=== PATIENT | female | born 1965 | race Caucasian/White ===

== ENCOUNTER 2016-11-23 11:32 | Emergency (ER) | payer SELFPAY ==
[~2016-11-23] VITALS: Ht 162.6 cm; Wt 81.0 kg
[2016-11-23] MEDS ORDERED: KETOROLAC 60MG/2ML VIAL IM ONE (12:00)
[2016-11-23] MEDS ORDERED: LORAZEPAM 1MG TABLET PO ONE (12:00)
[2016-11-23] MEDS ORDERED: CYCLOBENZAPRINE 10MG TABLET PO ONE (12:00)
[2016-11-23 12:01] VITALS: BP 152/87
== END 2016-11-23 13:18 | disposition home or self-care (01) ==
LOC: ER 12:22
DX: M62.830 Muscle spasm of back (principal); M25.512 Pain in left shoulder; G89.29 Other chronic pain; X50.1XXA Overexertion from prolonged static or awkward postures, initial encounter; Y93.89 Activity, other specified; Y92.89 Other specified places as the place of occurrence of the external cause; Y99.8 Other external cause status
CPT/HCPCS: 96372; 99283; J1885